=== PATIENT | female | born 2000 | race Caucasian/White ===

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

== ENCOUNTER 2018-01-03 23:37 | Inpatient (IN) | payer OTHER ==
[~2018-01-03] VITALS: Ht 160 cm; Wt 76.4 kg
[2018-01-03 23:40] VITALS: Ht 160 cm; Wt 76.4 kg
[2018-01-04 00:06] LABS: BASOPHIL % 0.5 % (0-2); PLATELET COUNT 286 x10^3mcL (130-400)
[2018-01-04 00:21] LABS: ALKALINE PHOSPHATASE 66 U/L (46-116); ALT/SGPT 16 U/L (14-59); AST/SGOT 13 U/L (15-37); BILIRUBIN TOTAL 0.4 mg/dL (0.20-1.00); CALCIUM 9.6 mg/dL (8.5-10.1); CARBON DIOXIDE 24.8 mmol/L (21-32); CHLORIDE SERUM 101 mmol/L (98-107); CREATININE SERUM 0.7 mg/dL (0.6-1.0); GFR1 > 60 mL/min; GLUCOSE SERUM 99 mg/dL (74-106); MAGNESIUM 1.9 mg/dL (1.8-2.4); POTASSIUM SERUM 3.6 mmol/L (3.5-5.1); SODIUM SERUM 138 mmol/L (136-145); TOTAL PROTEIN, SERUM 7.9 g/dL (6.4-8.2)
[2018-01-04 00:57] LABS: FREE T4 1.02 ng/dL (0.76-1.46); T4(THYROXINE) 9.4 ug/dL (4.7-13.3)
[2018-01-04 01:11] LABS: T3 TOTAL 1.19 ng/mL
[2018-01-04 01:16] LABS: AMPHETAMINE QUAL UR NONE DETECTED (See below)
[2018-01-04 03:12] LABS: CHOLESTEROL/HDL RATIO 2.5
[2018-01-04 03:16] VITALS: BP 100/60
[2018-01-04 06:19] VITALS: BP 96/48
[2018-01-04 06:24] LABS: CALCIUM 8.4 mg/dL (8.5-10.1); CARBON DIOXIDE 24.5 mmol/L (21-32); CHLORIDE SERUM 105 mmol/L (98-107); CREATININE SERUM 0.6 mg/dL (0.6-1.0); GFR1 > 60 mL/min; GLUCOSE SERUM 99 mg/dL (74-106); POTASSIUM SERUM 3.5 mmol/L (3.5-5.1); SODIUM SERUM 137 mmol/L (136-145)
[2018-01-04 06:58] LABS: BASOPHIL % 0.3 % (0-2); PLATELET COUNT 239 x10^3mcL (130-400); RED CELL DISTRIBUTION WIDTH 13.2 % (11.5-14.5)
[2018-01-04 10:13] VITALS: BP 96/47
[2018-01-04 14:35] VITALS: BP 104/65
[2018-01-04 18:18] VITALS: BP 103/64
[2018-01-04 21:16] VITALS: BP 117/63
[2018-01-05 05:39] VITALS: BP 94/56
[2018-01-05 08:34] VITALS: BP 107/62
[2018-01-05 10:27] VITALS: BP 107/62
== END 2018-01-05 10:55 | disposition home or self-care (01) | DRG 203 ==
LOC: ED 23:37 → DU 01-04 02:15
PROVIDERS: Emergency Medicine; Family Medicine
DX: R07.89 Other chest pain (principal); I08.1 Rheumatic disorders of both mitral and tricuspid valves; R94.31 Abnormal electrocardiogram [ECG] [EKG]; E02 Subclinical iodine-deficiency hypothyroidism; J45.909 Unspecified asthma, uncomplicated; Z83.3 Family history of diabetes mellitus; F41.9 Anxiety disorder, unspecified
CPT/HCPCS: 83880; 84439; J3490; Q0092